=== PATIENT | female | born 1955 | race Caucasian/White ===

== ENCOUNTER 2018-10-11 07:33 | Outpatient (REF) | payer BC, SELFPAY ==
[2018-10-11 13:00] LABS: ALT 39 U/L (12-78); AST 17 U/L (15-37); Albumin 3.6 g/dL (3.4-5.0); Alkaline Phosphatase 90 U/L (46-116); Anion Gap 10.9 mmol/L (3-11); BUN 15 mg/dL (7-18); Bilirubin, Total 0.4 mg/dL (0.2-1.0); CO2 26.1 mmol/L (21.0-32.0); CREATININE 0.73 mg/dL (0.55-1.02); Calcium 9.2 mg/dL (8.5-10.1); Calculated LDL 192; Chloride 104 mmol/L (98-107); Cholesterol 262 mg/dL (50-200); Glucose 89 mg/dL (70-100); HDL Cholesterol 47 mg/dL (40-60); Potassium 4.2 mmol/L (3.5-5.1); Sodium 141 mmol/L (136-145); Total Protein 7.2 g/dL (6.4-8.2); Triglyceride 116 mg/dL (30-150); Vitamin B12 314 pg/mL (193-986)
[2018-10-12 06:30] LABS: Vitamin D 25 Total 18.8 ng/ml (30-100)
== END 2018-10-11 07:53 ==
LOC: NCHCN 07:33
PROVIDERS: PCP Nurse Practitioner; Visit Provider Nurse Practitioner
DX: Z00.00 Encounter for general adult medical examination without abnormal findings (principal); E78.5 Hyperlipidemia, unspecified
CPT/HCPCS: 80053; 80061; 82306; 83721; 82607

== ENCOUNTER 2020-01-05 09:04 | Emergency (ER) | payer BC, SELFPAY ==
[2020-01-05] VITALS (25 sets, daily range): BP systolic 175; BP diastolic 108; PULSE 79–120; RESP 20–30; TEMP 37.2; O2SAT 92–98
--- NOTE | 2020-01-05 09:05 | ED.GENADUL_ITS ---
Discharge Plan Disposition Patient Disposition: HOME Condition: Fair Discharge Details Chief Complaint: Trauma Clinical Impression: Pneumonia, Closed rib fracture, Hypokalemia Primary Care Provider: Carissa Guido ED Provider: Irina Magdaleno Home Meds and New Rx's Prescriptions: New diazepam [Valium] 5 mg tablet 5 mg PO TID PRN (Reason: muscle spasm) Qty: 7 RF: 0 doxycycline hyclate 100 mg tablet 100 mg PO BID Qty: 13 RF: 0 albuterol sulfate 90 mcg/actuation HFA aerosol inhaler 2 puff IH QID PRN (Reason: shortness of breath or wheezing) Qty: 6.7 RF: 0 Continued cholecalciferol (vitamin D3) [Vitamin D3] 50 mcg (2,000 unit) Capsule 1 unit PO DAILY RF: 0 Discharge Instructions Instructions: Rib Fracture (ED), Hypokalemia (ED), Pneumonia (ED) Additional Instructions: That your CT scan is concerning for pneumonia. Please take the antibiotics as prescribed. Next dose is due this evening. On this differential is also potentially COVID-19. Your testing result for this is pending, we will contact you with the results. In the interim, please quarantine at home to help prevent spread. Also on your CT is a nondisplaced rib fracture. Please encourage deep breathing. Use the incentive spirometer as discussed by nursing staff at least 6 times daily. You may use Tylenol and/or ibuprofen as needed for discomfort. You may also use the Valium as prescribed to help with the muscular component associated with this. Please do not drive while taking the Valium. You may also try topical options such as Lidoderm patches, heat or ice. Your potassium was low today, it was replenished while here, please continue to eat potassium rich foods. I would like for you to follow-up closely with your primary care, please call on Tuesday to schedule follow-up appointment. If you develop increased difficulty breathing, shortness of breath, fevers, inability to stay hydrated or other new/worsening symptoms please seek care urgently once again. Stand Alone Forms: PENDING COVID-19 TESTING Referrals: Carissa Guido [Primary Care Provider] - Discharge Data Discharge Date/Time-TO BE ENTERED AT DEPARTURE: 01/05/20 14:06 Medical Decision Making <Farhad Flower MD - Last Filed: 01/05/20 17:08> 9:45 -- Patient seen, examined, and discussed with LOREN Magdaleno. Patient here for days status post fall from horse with left upper back pain. Focally tender over scapula. Lungs clear. Bedside [id number] ultrasound reveals sliding lung sign indicating no pneumothorax on left. ECG shows ST depressions inferior lateral, please see report. These are new compared to prior ECG from 2016. Patient does not have chest pain. Will send troponin. I agree with treatment plan as discussed/documented. Plan for CT. --CT revealed rib fracture, patchy airspace disease in the right lung greater than left, groundglass nature, concern for infectious process. COVID-19 testing was sent. Plan to cover for bacterial process with doxycycline. Patient will need close outpatient follow-up with PCP. Patient does have abnormalities noted on ECG. Troponin was negative. Outpatient follow-up necessary. <LOREN Edwards - Last Filed: 01/06/20 08:49> Patient is a pleasant 64-year-old female without any significant past medical history presenting today with chief complaint of left sided bilateral thoracic back pain. She reports that she fell, reports 4 days ago. Had no pain init ially in this area at that time. She reports her only complaint initially was neck pain which quickly resolved. She was helmeted, denies any loss of consciousness. No headache. States the following day she was then working with a chainsaw pushing over trees. Denied any pain during that activity. It was the following day, day #2, she began having discomfort in this area. She reports the pain is maximal when she takes deep inspirations or with cough. Patient is an active smoker. She is not feeling short of breath when at rest. No anterior chest pain. Pain does not radiate. She denies any midline tenderness. Has not noted any weakness. Pain is elicited with movement of the left upper extremity. She reports that her discomfort, with acute inspiration, has greatly increased prompting her to seek care this morning. She reports that when at rest, the pain is a 4 out of 10 but with movement it goes up to a 7 out of 10. She denies any abdominal discomfort. Has not noted any weakness. On exam, patient appears uncomfortable. She is tachypneic, tachycardic. She is 98% on room air. Noted to be hypertensive at 175/108. Her lungs are clear. She has no pain with palpation about the chest, no pain with AP or lateral chest wall compression. No crepitus. No midline or paraspinal tenderness along cervical, thoracic or lumbar spine. She does have good range of motion of her spine but does have discomfort particularly with rotation to the right. This does cause discomfort inferior to the left scapula. No CVA discomfort. No objective evidence of trauma. Portable chest x-ray was reviewed by radiology: FINDINGS: Lungs: Emphysema Pleural space: Question subtle opacity right costophrenic angle. Lungs are otherwise well aerated. Heart/Mediastinum: Unremarkable. No cardiomegaly. Bones/joints: Prior surgical fixation proximal right humerus IMPRESSION: Question subtle opacity right costophrenic angle. Lungs are otherwise well aerated. Consider two-view chest. Bedside chest ultrasound was performed by Dr. Flower. Please see his note. There is lung sliding without evidence of pneumothorax. EKG was reviewed by Dr. Flower. He has a normal sinus rhythm with a rate of 99. There is ST depression noted in 1 to, V3 through V6 that are new compared to prior. Patient is focal pain, seems to be primarily musculoskeletal driven, does not correlate with these changes in the EKG. However, I do remain concerned ACS and will plan for a repeat troponin repeat EKG. Also concern for potential PE in the posttraumatic setting and will obtain a CT for PE protocol. FINDINGS: Pulmonary arteries: No dissection. No visualized embolism as characterized to the most proximal segmental level. Consider alternative form of imaging if indicated. Aorta: Calcification of the aorta. Lungs: Patchy airspace disease right lung greater than left predominantly peripheral of a rather ground-glass nature. Infectious process within the differential diagnosis including covid. Please correlate clinically. Mild atelectasis within the left upper lobe anteriorly adjacent to the cardiac apex and mediastinum. Pleural space: Small amount of pleural fluid. Heart: Unremarkable. No cardiomegaly. No pericardial effusion. Mediastinal space: Small hiatal hernia. Lymph nodes: Nonspecific lymph nodes within the mediastinum Liver: Mild fatty infiltration of the liver. Bones/joints: Prior surgical fixation proximal right humerus Mildly displaced fracture of the 5th rib laterally. Mild degenerative changes within the spine Soft tissues: Unremarkable. Other findings: The thoracic inlet is unremarkable. IMPRESSION: 1. Mildly displaced fracture of the 5th rib laterally. No visualized pneumothorax. 2. No dissection. No visualized embolism as characterized to the most proximal segmental level. Consider alternative form of imaging if indicated. 3. Patchy airspace disease right lung greater than left predominantly peripheral of a rather groundglass nature. Infectious process within the differential diagnosis including covid. Please correlate clinically. 4. Mild atelectasis within the left upper lobe anteriorly adjacent to the cardiac apex and mediastinum. Discussed these findings with the patient. She states that she has minimal exposure Outside of her own home. She is no known sick contacts. She had initially denied any cough or symptoms of infection. However, she is now reporting that she has been feeling junky and has noted a mild cough. She continues to deny any fevers. we will COVID test the patient, begin on doxycycline. Her labs are reviewed. She does have a leukocytosis with a white count of 15, she does have a generally neutrophil prominence. Potassium is low at 3.2, will replenish this orally. Troponin is less than 0.05. Labs otherwise without significant abnormalities. Plan for rib troponin. She is feeling improved after IV Valium. To help with breathing, patient was evaluated by respiratory therapy. They did a breathing treatment and instructed on incentive spirometer. Patient feels that her breathing is much improved after the nebulizer. She did not sound wheezy or tight at the initial exam but as she felt was helpful, plan to prescribe albuterol. I did encourage smoking cessation. Patient tolerated her first dose of doxycycline while here for presumed pneumonia. Suze testing has been completed and is pending. Repeat troponin remains less than 0.05 and EKG remains unchanged. Patient received p.o. potassium. Encourage close follow-up with primary care. At some point, patient will likely need further work-up of her EKG changes. However, given her acute illness as well as rib fracture, I do not feel that now is the appropriate time for this. Patient was given strict return precautions. She will continue to quarantine at home. We will contact her with COVID-19 results. All of her questions and concerns were addressed she is in agreement this plan. HPI <Farhad Flower MD - Last Filed: 01/05/20 17:08> General Date/Time Provider Initiated Documentation: 01/05/20 09:05 . Related Data Home Medications Medication Instructions Recorded Confirmed albuterol sulfate 2 puff IH QID PRN #6.7 gm 01/05/20 cholecalciferol (vitamin D3) 1 unit PO DAILY 01/05/20 01/05/20 [Vitamin D3] diazepam [Valium] 5 mg PO TID PRN #7 tab 01/05/20 doxycycline hyclate 100 mg PO BID #13 tab 01/05/20 Previous Rx's Medication Instructions Recorded albuterol sulfate 2 puff IH QID PRN #6.7 gm 01/05/20 diazepam [Valium] 5 mg PO TID PRN #7 tab 01/05/20 doxycycline hyclate 100 mg PO BID #13 tab 01/05/20 Allergies Allergy/AdvReac Type Severity Reaction Status Date / Time Penicillins AdvReac Intermediate Anaphylaxsi Unverified 01/05/20 09:13 s <LOREN Edwards - Last Filed: 01/06/20 08:49> General Mode of arrival: ambulatory . Limitations to Documentation: no limitations . Information obtained by: patient and RN notes reviewed . History of Present Illness 64 year old F presents to the emergency department with the chief complaint of left posterior back, described as moderate, with intensity rated at 4 (when at rest, 7 with movement). Quality is described as sharp, and is localized to the back (left lateral back pain). Patient reports no radiation. Patient started experiencing this day(s) (4) and it has been constant. Immobilization improves symptom(s), Movement worsens symptoms . Patient notes shortness of breath (pain with deep inspiration); denies chest pain (denies substernal or anterior pain), cough, fever/chills, loss of appetite, nausea/vomiting, rash, syncope and weakness. Patient did receive the following treatments prior to arrival, NSAID and other (tylenol) <LOREN Edwards - Last Filed: 01/06/20 08:49> Constitutional Constitutional: Reports as per HPI, Denies chills, Denies fatigue, Denies fever(s), Denies headache(s) and Denies weakness Eyes Eyes: Reports as per HPI, Denies blurry vision, Denies change in vision and Denies loss of vision ENT Ears, Nose, Mouth, and Throat: Denies abnormal hearing and Denies headache(s) Cardiovascular Cardiovascular: Reports as per HPI, Denies chest pain, Reports dyspnea (assoc iated with deep breathing) and Denies dyspnea on exertion Respiratory Respiratory: Reports as per HPI, Denies cough, Reports pain on inspiration, Reports pain with cough, Reports dyspnea (associated with deep breathing) and Denies dyspnea on exertion Gastrointestinal Gastrointestinal: Reports as per HPI, Denies abdominal pain, Denies nausea and Denies vomiting Genitourinary Genitourinary: Reports as per HPI and Denies urinary incontinence Musculoskeletal Musculoskeletal: Reports as per HPI Integumentary/Breasts Skin/Breast: Reports as per HPI and Denies rash Neurologic Neurologic: Reports as per HPI, Denies abnormal hearing, Denies abnormal m ovements, Denies abnormal speech, Denies headache(s), Denies lack of coordination, Denies localized weakness, Denies loss of vision, Denies seizure- like activity, Denies paresthesias and Denies weakness Endocrine Endocrine: Denies fatigue PFSH <Farhad Flower MD - Last Filed: 01/05/20 17:08> Social History Smoking/Tobacco Use Status: Current every day Tobacco Type: cigarettes Drug use: Never Do you feel safe at home: Yes Do you feel safe in your relationship?: Yes Exam <Farhad Flower MD - Last Filed: 01/05/20 17:08> Back/Spine/Pelvis Back/spine/pelvis image: 1. area of discomfort, no ecchymosis, swelling. No crepitus. No pain with AP or lateral chest compression. Lungs are clear. No midline or paraspinal tenderness. <LOREN Edwards - Last Filed: 01/06/20 08:49> Const General: cooperative, healthy appearing, uncomfortable, no acute distress, well developed, well groomed and anxious Nutritional Appearance: average body habitus and well nourished Orientation: alert, awake and oriented x3 HENMT Head: normal to inspection, no palpable skull fracture, normocephalic and atraumatic Ears: hearing grossly normal bilaterally, external ears normal and TM's normal bilaterally General nose exam: external nose normal Mouth: oral mucosae normal, lip normal and tongue normal Throat: posterior oropharynx normal Eyes General: appearance normal, both eyes and all related structures Visual Rosales: normal visual rosales by confrontation Alignment and Position: alignment normal Periorbital: periorbital findings normal Eyelids: eyelids normal Conjunctivae: conjunctivae normal Pupils: PERRL EOM: EOM intact bilaterally Neck Neck: normal visual inspection, full ROM, no lymphadenopathy, no meningeal signs, trachea midline and supple Chest Chest: normal inspection of the chest, normal palpation of entire chest wall, no crepitus and no localized rib tenderness Resp Effort & Inspection: normal respiratory effort, able to speak in complete sentences and no respiratory distress Auscultation: clear to auscultation bilaterally, no rales, no rhonchi and no wheezes Cardio Rate: regular rate Rhythm: regular rhythm Heart Sounds: S1 normal and S2 normal GI Inspection: normal to inspection, no abdominal wall ecchymosis, no edema and non-distended Palpation: soft, no hepatosplenomegaly, not firm, no guarding, no pulsatile masses, not rigid and nontender Auscultation: normal bowel sounds Back/Spine/Pelvis Back: no CVA tenderness Cervical Spine: normal cervical lordosis and cervical ROM normal Thoracic/Lumbar Spine: thoracic and lumbar spine normal to inspection, thoraco- lumbar ROM normal, pain with thoraco-lumbar ROM (in area indicated below), No paraspinal tenderness, No thoraco-lumbar ROM limited, No thoraco-lumbar spasm, No thoracic spinal tenderness, No lumbar spinal tenderness and No straight leg raise positive Pelvis: no pain with anterior-posterior compression and no pain with lateral compression Back/spine/pelvis image: 1. area of discomfort, no ecchymosis, swelling. No crepitus. No pain with AP or lateral chest compression. Lungs are clear. No midline or paraspinal tenderness. Skin General skin exam: no rashes or lesions noted Lesions: no lesions Rashes: no rashes Trauma: no lacerations or abrasions Wounds: no wounds Neuro General: patient alert, patient awake, patient oriented x3, gait normal, tone normal and moves all extremities Cranial Nerves: CN's II-XI intact bilaterally Cognition: normal cognition Speech: speech normal Gait: normal gait Motor: muscle tone normal throughout and strength 5/5 throughout Sensory Exam: no sensory deficits noted (no saddle paresthesias) Extrem General: normal to inspection, full ROM, capillary refill normal, no pedal edema and no calf tenderness Psych Appearance: grossly normal and well kempt Mental Status: mental status grossly normal Speech and Movement: speech and movement normal
--- NOTE | 2020-01-05 09:15 | DI.CT_ITS ---
EXAM: CT CHEST PE CTA CLINICAL HISTORY: left sided pleuritic pain, SOB. TECHNIQUE: Imaging Protocol: Axial CT angiography was performed with multi-slice acquisition and mu lti-planar and/or 3D reconstructions. CONTRAST MATERIAL: Intravenous: Omnipaque 350 Contrast volume:100 mL COMPARISON: CT CHEST WITH CONTRAST from 08/29/2015 CR,XR XR PORTABLE CHEST AP from 01/05/2020 FINDINGS: Pulmonary Arteries: No evidence of filling defect to suggest pulmonary emboli. Tracheobronchial tree: Patent where visualized. Mediastinum and Ileana: Small nonspecific lymph nodes seen in the mediastinum. Pulmonary parenchyma: Predominantly peripheral ground-glass opacities in the lungs bilaterally. No a rchitectural distortion. Pleura: Tiny pleural effusions. No pneumothorax. Heart: The heart is not dilated. No coronary artery calcifications are seen. No pericardial effusion. Aorta: Thoracic aorta non-dilated. Mild atherosclerosis. No dissection. Upper abdomen: Fatty infiltration. Bones: Degenerative changes. Postsurgical changes in the right shoulder.Acute mildly displaced fract ure of the left 5th rib anterior laterally. Soft tissues: Unremarkable. IMPRESSION: 1. No evidence of pulmonary embolism, thoracic aortic dissection or aneurysm. 2. Mildly displaced acute left 5th rib fracture laterally. 3. Airspace opacities predominantly peripherally. An infectious or inflammatory process should be co nsidered including CoVid. RADIATION DOSE DELIVERED: 353.25mGy.cm Total DLP DATA REPOSITORY: All CT scans at this facility are submitted to the National Radiology Data Registry (NRDR) Dose Index Registry (DIR) with the [employer] (A[employer]). RADIATION OPTIMIZATION: All CT scans at this facility use at least one of these dose optimization te chniques: automated exposure control; mA and/or kV adjustment per patient size (includes targeted exa ms where dose is matched to clinical indication); or iterative reconstruction.
--- NOTE | 2020-01-05 09:15 | DI.RAD_ITS ---
EXAM: XR PORTABLE CHEST AP CLINICAL HISTORY: trauma, fall from horse TECHNIQUE: 2D digital imaging was performed. COMPARISON: No exams were available for comparison FINDINGS: MEDIASTINUM: Normal. HEART: Normal. PULMONARY VASCULATURE: Normal. LUNGS: Opacity in the right lung base which may represent atelectasis or pneumonia. PLEURAL SPACE: No pleural effusion or pneumothorax. BONE:Prior orthopedic surgery on the right humerus. The left rib fracture is best appreciated on the CT scan of the chest. OTHER FINDINGS:Normal. IMPRESSION: Pulmonary infiltrate in the right lung which may represent atelectasis or pneumonia. DATA REPOSITORY: RADIATION DOSE DELIVERED:
--- NOTE | 2020-01-05 09:15 | RT.EKG_ITS ---
APPROVED REPORT Exam: Resting ECG Patient Location: E HR:99 bpm ECG Measurements Heart Rate 99 AXIS NM 144 P 68 QRSd 94 QRS 50 QT 333 T 10 QTc 427 Conclusion Sinus rhythm...normal P axis, V-rate 60- 99 st dep I, II, V3-6 new compared to prior
--- NOTE | 2020-01-05 09:34 | DI.VRAD_ITS ---
PROCEDURE INFORMATION: Exam: XR Chest, 1 View Exam date and time: 01/05/2020 9:22 AM Age: 64 years old Clinical indication: Other: Trauma, fall from horse TECHNIQUE: Imaging protocol: XR of the chest Views: 1 view. COMPARISON: CT CHEST WITH CONTRAST 08/30/2015 12:20 AM FINDINGS: Lungs: Emphysema Pleural space: Question subtle opacity right costophrenic angle. Lungs are otherwise well aerated. Heart/Mediastinum: Unremarkable. No cardiomegaly. Bones/joints: Prior surgical fixation proximal right humerus IMPRESSION: Question subtle opacity right costophrenic angle. Lungs are otherwise well aerated. Consider two-view chest. Dictated and Authenticated by: Melchor Browning MD. Ordering:MARIA TERESA Arevalo MD
[2020-01-05 09:35] LABS: Abs Immature Grans 0.06 10^3/uL (0.0-0.06); Absolute Basophil Count 0.02 10^3/uL (0.0-0.2); Absolute Eosinophil Count 1.01 10^3/uL (0.0-0.7); Basophils % 0.1; Eosinophils % 6.3; HCT 44.9 % (36.0-46.0); HGB 14.9 g/dL (11.2-15.7); Immature Grans % 0.4; Lymphocytes % 9.3; MCH 30.1 pg (27.0-33.0); MCHC 33.2 % (32.0-36.0); MCV 90.7 fL (80-95); MPV 10.6 fL (8.0-11.0); Monocytes % 6.6; Neutrophils % 77.3; Nucleated RBC 0 %; Platelet Count 274 10^3/uL (130-400); RBC 4.95 10^6/uL (3.93-5.22); RDW 13.2 % (11.7-14.6); RDW-SD 43.7 fL; WBC 15.96 10^3/uL (4.4-10.8)
[2020-01-05] MEDS: Normal Saline Flush 10 ML SYR IVP ×3 (09:40→12:43)
[2020-01-05 09:41] LABS: Absolute Lymphocyte Count 1.48 10^3/uL (1.2-3.4); Absolute Monocyte Count 1.05 10^3/uL (0.1-0.8); Absolute Neutrophil Count 12.34 10^3/uL (1.2-6.7)
[2020-01-05] MEDS: Omnipaque 350 MG/ML 100 ML BTL IJ (09:41)
[2020-01-05] MEDS: Normal Saline - Diluent 50 ML VIAL IV (09:42)
[2020-01-05] MEDS: diazePAM 10 MG/2 ML SYR 5 MG IVP (09:45)
[2020-01-05 09:49] LABS: PTT Activated 26.5 sec (21.0-31.4); Prothrombin Time 9.9 sec (9.3-11.0)
[2020-01-05 09:52] LABS: ALT 31 U/L (14-59); AST 16 U/L (15-37); Albumin 3.8 g/dL (3.4-5.0); Alkaline Phosphatase 79 U/L (46-116); Anion Gap 11.8 mmol/L (3-11); BUN 11 mg/dL (7-18); Bilirubin, Total 0.8 mg/dL (0.2-1.0); CO2 25.2 mmol/L (21.0-32.0); CREATININE 0.84 mg/dL (0.55-1.02); Calcium 9.5 mg/dL (8.5-10.1); Chloride 103 mmol/L (98-107); Glucose 125 mg/dL (74-106); Potassium 3.2 mmol/L (3.5-5.1); Sodium 140 mmol/L (136-145); Total Protein 7.9 g/dL (6.4-8.2)
[2020-01-05 10:06] LABS: Troponin I < 0.05 ng/mL (<0.06)
[2020-01-05] MEDS: Lactated Ringers 1,000 ML 1000 ML IV (10:07)
--- NOTE | 2020-01-05 10:17 | DI.VRAD_ITS ---
PROCEDURE INFORMATION: Exam: CT Angiography Chest With Contrast Exam date and time: 01/05/2020 9:21 AM Age: 64 years old Clinical indication: Left-sided chest pain; Patient HX: Fall off horse 3 days ago. TECHNIQUE: Imaging protocol: Computed tomographic angiography of the chest with intravenous contrast. 3D rendering (Not supervised by radiologist): MIP and/or 3D reconstructed images were created by the technologist. Radiation optimization: All CT scans at this facility use at least one of these dose optimization techniques: automated exposure control; mA and/or kV adjustment per patient size (includes targeted exams where dose is matched to clinical indication); or iterative reconstruction. Contrast material: OMNIPAQUE 350; Contrast volume: 100 ml; Contrast route: INTRAVENOUS (IV); COMPARISON: CT CHEST WITH CONTRAST 08/30/2015 12:20 AM FINDINGS: Pulmonary arteries: No dissection. No visualized embolism as characterized to the most proximal segmental level. Consider alternative form of imaging if indicated. Aorta: Calcification of the aorta. Lungs: Patchy airspace disease right lung greater than left predominantly peripheral of a rather ground-glass nature. Infectious process within the differential diagnosis including covid. Please correlate clinically. Mild atelectasis within the left upper lobe anteriorly adjacent to the cardiac apex and mediastinum. Pleural space: Small amount of pleural fluid. Heart: Unremarkable. No cardiomegaly. No pericardial effusion. Mediastinal space: Small hiatal hernia. Lymph nodes: Nonspecific lymph nodes within the mediastinum Liver: Mild fatty infiltration of the liver. Bones/joints: Prior surgical fixation proximal right humerus Mildly displaced fracture of the 5th rib laterally. Mild degenerative changes within the spine Soft tissues: Unremarkable. Other findings: The thoracic inlet is unremarkable. IMPRESSION: 1. Mildly displaced fracture of the 5th rib laterally. No visualized pneumothorax. 2. No dissection. No visualized embolism as characterized to the most proximal segmental level. Consider alternative form of imaging if indicated. 3. Patchy airspace disease right lung greater than left predominantly peripheral of a rather ground-glass nature. Infectious process within the differential diagnosis including covid. Please correlate clinically. 4. Mild atelectasis within the left upper lobe anteriorly adjacent to the cardiac apex and mediastinum. Dictated and Authenticated by: Melchor Browning MD. Ordering:MARIA TERESA Arevalo MD
[2020-01-05] MEDS: Doxycycline Hyclate 100 MG CAP PO (10:52)
[2020-01-05] MEDS: POTASSIUM CHLORIDE 20 MEQ, POTASSIUM CHLORIDE 10 MEQ 30 MEQ PO (10:52)
--- NOTE | 2020-01-05 12:00 | RT.EKG_ITS ---
APPROVED REPORT Exam: Resting ECG Patient Location: E HR:89 bpm ECG Measurements Heart Rate 89 AXIS CA 150 P 56 QRSd 95 QRS 47 QT 360 T -2 QTc 438 Conclusion Sinus rhythm...normal P axis, V-rate 60- 99 ST dep i, II, v3-6
[2020-01-05] MEDS: Ketorolac 30 MG/ML VIAL IVP (12:42)
[2020-01-05] MEDS: Lidocaine 5% Patch 1 PATCH TP (12:43)
[2020-01-05 12:56] LABS: Troponin I < 0.05 ng/mL (<0.06)
[2020-01-08 01:59] LABS: SARS-CoV-2 RNA Undetected (Undetected); SARS-CoV-2 Specimen Source Nasopharynx
--- NOTE | 2020-01-08 09:05 | NUR.NOTE ---
0905 Pt notified of negative Covid result---states she is feeliing better today--will f/u with pcp or er if worsening sx.Nursing Note:
== END 2020-01-05 14:06 | disposition home or self-care (01) ==
PROVIDERS: Emergency Provider Physician Assistant; PCP Nurse Practitioner
DX: J18.9 Pneumonia, unspecified organism (principal); E87.6 Hypokalemia; S22.32XA Fracture of one rib, left side, initial encounter for closed fracture; V80.010A Animal-rider injured by fall from or being thrown from horse in noncollision accident, initial encounter; Y93.52 Activity, horseback riding; Z03.818 Encounter for observation for suspected exposure to other biological agents ruled out; R94.31 Abnormal electrocardiogram [ECG] [EKG]; F17.210 Nicotine dependence, cigarettes, uncomplicated
CPT/HCPCS: 36415; 71275; 80053; 93005; 96361; 96374; 96375; 99285; U0003; 71045; 84484; 85025; 85610; 85730; 93010; 94640; 94667; J1885; J3360; J3490

== ENCOUNTER 2020-01-16 13:11 | Outpatient (REF) | payer BC, SELFPAY ==
[2020-01-16 17:00] LABS: Calculated LDL 187 mg/dL (<100); Cholesterol 263 mg/dL (<200); HDL Cholesterol 39 mg/dL (40-60); Triglyceride 187 mg/dL (<150)
== END 2020-01-16 13:31 ==
LOC: NCHCN 13:11
PROVIDERS: PCP Nurse Practitioner; Visit Provider Nurse Practitioner
DX: E78.5 Hyperlipidemia, unspecified (principal)
CPT/HCPCS: 80061

== ENCOUNTER 2020-07-31 16:12 | Outpatient (REF) | payer BC, SELFPAY ==
[2020-07-31 17:58] LABS: HCT 44.2 % (36.0-46.0); HGB 14.9 g/dL (11.2-15.7); MCH 30.8 pg (27.0-33.0); MCHC 33.7 % (32.0-36.0); MCV 91.3 fL (80-95); MPV 11.2 fL (8.0-11.0); Platelet Count 273 10^3/uL (130-400); RBC 4.84 10^6/uL (3.93-5.22); RDW 13.2 % (11.7-14.6); RDW-SD 44.3 fL; WBC 11.95 10^3/uL (4.4-10.8)
[2020-07-31 18:39] LABS: ALT 26 U/L (14-59); AST 19 U/L (15-37); Albumin 4.1 g/dL (3.4-5.0); Alkaline Phosphatase 85 U/L (46-116); Anion Gap 8.8 mmol/L (3-11); BUN 12 mg/dL (7-18); Bilirubin, Total 0.5 mg/dL (0.2-1.0); CO2 29.2 mmol/L (21.0-32.0); CREATININE 0.7 mg/dL (0.55-1.02); Calcium 9.9 mg/dL (8.5-10.1); Calculated LDL 215 mg/dL (<100); Chloride 107 mmol/L (98-107); Cholesterol 289 mg/dL (<200); Glucose 89 mg/dL (74-106); HDL Cholesterol 56 mg/dL (40-60); Potassium 4.3 mmol/L (3.5-5.1); Sodium 145 mmol/L (136-145); Total Protein 7.6 g/dL (6.4-8.2); Triglyceride 90 mg/dL (<150)
== END 2020-07-31 16:13 | disposition home or self-care (01) ==
LOC: NCHCN 16:12
PROVIDERS: PCP Nurse Practitioner; Visit Provider Nurse Practitioner
DX: E78.5 Hyperlipidemia, unspecified (principal); R42 Dizziness and giddiness
CPT/HCPCS: 80053; 80061; 85027

== ENCOUNTER 2021-12-17 15:46 | Outpatient (REF) | payer MEDICARE, SELFPAY ==
[2021-12-17 14:53] LABS: HCT 43.6 % (36.0-46.0); HGB 14.6 g/dL (11.2-15.7); MCH 30.9 pg (27.0-33.0); MCHC 33.5 % (32.0-36.0); MCV 92 fL (80-95); MPV 10.6 fL (8.0-11.0); Platelet Count 281 10^3/uL (130-400); RBC 4.73 10^6/uL (3.93-5.22); RDW 13.1 % (11.7-14.6); RDW-SD 44.5 fL; WBC 10.96 10^3/uL (4.4-10.8)
[2021-12-17 15:21] LABS: ALT 24 U/L (14-59); AST 18 U/L (15-37); Albumin 4.2 g/dL (3.4-5.0); Alkaline Phosphatase 84 U/L (46-116); Anion Gap 8.5 mmol/L (3-11); BUN 8 mg/dL (7-18); Bilirubin, Total 0.3 mg/dL (0.2-1.0); CO2 28.5 mmol/L (21.0-32.0); CREATININE 0.6 mg/dL (0.55-1.02); Calcium 9.8 mg/dL (8.5-10.1); Calculated LDL 204 mg/dL (<100); Chloride 106 mmol/L (98-107); Cholesterol 279 mg/dL (<200); Glucose 88 mg/dL (74-106); HDL Cholesterol 60 mg/dL (40-60); Potassium 4.3 mmol/L (3.5-5.1); Sodium 143 mmol/L (136-145); TSH (W/Ref FT4) 0.84 uIU/mL (0.36-3.74); Total Protein 7.5 g/dL (6.4-8.2); Triglyceride 78 mg/dL (<150)
== END 2021-12-17 15:47 | disposition home or self-care (01) ==
LOC: NCHCN 15:46
PROVIDERS: PCP Nurse Practitioner; Visit Provider Nurse Practitioner Family
DX: E78.5 Hyperlipidemia, unspecified (principal); F41.9 Anxiety disorder, unspecified; F43.10 Post-traumatic stress disorder, unspecified; Z72.0 Tobacco use
CPT/HCPCS: 80053; 80061; 85027; 84443

== ENCOUNTER 2022-06-17 16:06 | Outpatient (REF) | payer MEDICARE, SELFPAY ==
[2022-06-17 16:32] LABS: Calculated LDL 146 mg/dL (<100); Cholesterol 230 mg/dL (<200); HDL Cholesterol 67 mg/dL (40-60); Triglyceride 89 mg/dL (<150)
== END 2022-06-17 16:07 | disposition home or self-care (01) ==
LOC: NCHCN 16:06
PROVIDERS: PCP Nurse Practitioner; Visit Provider Nurse Practitioner Family
DX: E78.5 Hyperlipidemia, unspecified (principal)
CPT/HCPCS: 80061

== ENCOUNTER 2023-03-29 19:42 | Outpatient (REF) | payer MEDICARE, SELFPAY ==
[2023-03-29 18:22] LABS: HGB 13.2 g/dL (11.2-15.7); MCH 30.9 pg (27.0-33.0); MCHC 33.8 % (32.0-36.0); MCV 91 fL (80-95); MPV 10.7 fL (8.0-11.0); Platelet Count 238 10^3/uL (130-400); RBC 4.27 10^6/uL (3.93-5.22); RDW 12.6 % (11.7-14.6); RDW-SD 41.8 fL; WBC 8.94 10^3/uL (4.4-10.8)
[2023-03-29 18:36] LABS: ALT 27 U/L (14-59); AST 25 U/L (15-37); Albumin 3.6 g/dL (3.4-5.0); Alkaline Phosphatase 93 U/L (46-116); Anion Gap 6.7 mmol/L (3-11); BUN 19 mg/dL (7-18); Bilirubin, Total 0.2 mg/dL (0.2-1.0); CO2 25.3 mmol/L (21.0-32.0); CREATININE 0.8 mg/dL (0.55-1.02); Calcium 8.9 mg/dL (8.5-10.1); Chloride 106 mmol/L (98-107); Estimated GFR 81.21 (mL/min/1.73m2); Glucose 124 mg/dL (74-106); Potassium 3.7 mmol/L (3.5-5.1); Sodium 138 mmol/L (136-145); Total Protein 7.3 g/dL (6.4-8.2)
== END 2023-03-29 19:43 | disposition home or self-care (01) ==
LOC: NCHCN 19:42
PROVIDERS: PCP Nurse Practitioner Family; Visit Provider Nurse Practitioner Family
DX: I10 Essential (primary) hypertension (principal)
CPT/HCPCS: 80053; 85027

== ENCOUNTER 2023-09-27 12:22 | Outpatient (REF) | payer MEDICARE, SELFPAY ==
[2023-09-27 18:41] LABS: ALT 26 U/L (14-59); AST 21 U/L (15-37); Albumin 4.1 g/dL (3.4-5.0); Alkaline Phosphatase 81 U/L (46-116); Anion Gap 4.7 mmol/L (3-11); BUN 13 mg/dL (7-18); Bilirubin, Total 0.3 mg/dL (0.2-1.0); CO2 28.3 mmol/L (21.0-32.0); CREATININE 0.8 mg/dL (0.55-1.02); Calcium 9.3 mg/dL (8.5-10.1); Calculated LDL 102 mg/dL (<100); Chloride 107 mmol/L (98-107); Cholesterol 178 mg/dL (<200); Estimated GFR 80.71 (mL/min/1.73m2); Glucose 90 mg/dL (74-106); HDL Cholesterol 64 mg/dL (40-60); Potassium 4.2 mmol/L (3.5-5.1); Sodium 140 mmol/L (136-145); Total Protein 7.7 g/dL (6.4-8.2); Triglyceride 64 mg/dL (<150)
[2023-09-27 18:43] LABS: Hemoglobin A1C 5.7 % (<5.7)
== END 2023-09-27 12:23 | disposition home or self-care (01) ==
LOC: NCHCN 12:22
PROVIDERS: PCP Nurse Practitioner Family; Visit Provider Nurse Practitioner Family
DX: E78.5 Hyperlipidemia, unspecified (principal); R73.9 Hyperglycemia, unspecified
CPT/HCPCS: 80053; 80061; 83036